=== PATIENT | female | born 1990 | race African-American/Black ===

== ENCOUNTER 2017-10-05 18:14 | Emergency (ER) | payer OTHER ==
[~2017-10-05] VITALS: Ht 162.6 cm; Wt 95.5 kg
[2017-10-05 19:54] LABS: CONTROL LINE HCG INT CTR LINE PRESENT
[2017-10-05] MEDS ORDERED: PRENTAB16 PO (20:08)
[2017-10-05 20:16] VITALS: BP 137/80
== END 2017-10-05 20:17 | disposition home or self-care (01) ==
LOC: M ED 18:14
DX: R79.89 Other specified abnormal findings of blood chemistry (principal); Z3A.00 Weeks of gestation of pregnancy not specified

== ENCOUNTER 2017-10-15 12:37 | Emergency (ER) | payer OTHER ==
[~2017-10-15] VITALS: Ht 162.6 cm; Wt 93.6 kg
[~2017-10-15 12:37] MED LIST: PRENTAB16 PO
[2017-10-15 14:25] LABS: MEAN CORPUSCULAR HEMOGLOBIN 28.1 pg (27.0-33.0); MEAN CORPUSCULAR VOLUME 82.4 fl (80.0-96.0); PLATELET COUNT, AUTOMATED 246 10^3/uL (150-450); RED CELL DISTRIBUTION WIDTH 13.6 % (11.5-14.5); WHITE BLOOD COUNT 4.8 10^3/uL (4.0-10.0)
[2017-10-15 14:33] LABS: MUCUS, URINE RFX SMALL (NEGATIVE); SPECIFIC GRAVITY UR AUTO RFX 1.024 (1.002-1.035); SQUAM EPITHELIAL CELL UR AURFX 2 /HPF (0-6)
--- NOTE | 2017-10-15 15:22 | REP ---
First trimester emergency obstetric sonography: History: Cramping and vaginal spotting. Findings: Transabdominal scanning demonstrates a viable single intrauterine gestation in a free-floating lie. heart rate is recorded at 149 beats per minute. The embryonic pole measures 15 mm in crown-rump length. This corresponds with a gestational age estimate of 7 weeks and 6 days. There is a 2.9 x 2.9 x 2.2 cm small subchorionic hemorrhage identified superior to the gestational sac. There is a 2.3 cm right ovarian cyst consistent with a corpus luteum. There is a 2.9 cm posterior myometrial fibroid. Impression: 1. Viable single intrauterine gestation at 7 weeks 6 days by crown-rump length. MARIA ELENA by sonography May 28, 2018. 2. 2.9 cm posterior uterine fibroid. 3. 2.9 cm subchorionic hemorrhage adjacent to the gestational sac superiorly. Signed by Pa Mcrae MD 10/15/2017 04:15 P
[2017-10-15 15:57] VITALS: BP 145/6
== END 2017-10-15 15:59 | disposition home or self-care (01) ==
LOC: M ED 12:37
DX: O20.8 Other hemorrhage in early pregnancy (principal); Z3A.01 Less than 8 weeks gestation of pregnancy; O99.511 Diseases of the respiratory system complicating pregnancy, first trimester; J45.909 Unspecified asthma, uncomplicated; O34.11 Maternal care for benign tumor of corpus uteri, first trimester; D25.9 Leiomyoma of uterus, unspecified

== ENCOUNTER 2018-01-14 19:54 | Emergency (ER) | payer OTHER ==
[2018-01-14] MEDS: PERCOCET 5MG/325MG TAB PO (21:45)
== END 2018-01-15 00:15 | disposition home or self-care (01) ==
LOC: M ED 01-15 00:15
DX: O9A.212 Injury, poisoning and certain other consequences of external causes complicating pregnancy, second trimester (principal); S50.02XA Contusion of left elbow, initial encounter; S70.02XA Contusion of left hip, initial encounter; W00.0XXA Fall on same level due to ice and snow, initial encounter; Y92.018 Other place in single-family (private) house as the place of occurrence of the external cause; R10.2 Pelvic and perineal pain; Z3A.20 20 weeks gestation of pregnancy; O99.512 Diseases of the respiratory system complicating pregnancy, second trimester; J45.909 Unspecified asthma, uncomplicated; Z87.891 Personal history of nicotine dependence
CPT/HCPCS: 73080

== ENCOUNTER 2018-02-18 21:42 | Outpatient (CLI) | payer OTHER ==
[2018-02-18 22:46] LABS: APPEARANCE, URINE CLEAR (CLEAR); BACTERIA, URINE AUTO 1+ (NEGATIVE); BILIRUBIN, URINE AUTO NEGATIVE (NEGATIVE); BLOOD, URINE BLOOD NEGATIVE (NEGATIVE); CALCIUM OXALATE CRYSTALS SMALL; COLOR, URINE YELLOW (YELLOW); GLUCOSE, URINE (UA) AUTO NEGATIVE (NEGATIVE); KETONE, URINE AUTO NEGATIVE (NEGATIVE); LEUKOCYTE ESTERASE, URINE AUTO NEGATIVE (NEGATIVE); MUCUS, URINE SMALL (NEGATIVE); NITRITE, URINE AUTO NEGATIVE (NEGATIVE); PROTEIN, URINE AUTO NEGATIVE (NEGATIVE); RBC, URINE AUTO 1 /HPF (0-3); SPECIFIC GRAVITY URINE AUTO 1.029 (1.002-1.035); SQUAMOUS EPITHELIAL CELL UR AU 6 /HPF (0-6); WBC, URINE AUTO 2 /HPF (0-3)
== END 2018-02-18 23:35 | disposition home or self-care (01) ==
LOC: M LDO 21:42
DX: O26.892 Other specified pregnancy related conditions, second trimester (principal); Z3A.25 25 weeks gestation of pregnancy; M54.32 Sciatica, left side
CPT/HCPCS: 59025

== ENCOUNTER 2018-03-27 10:10 | Emergency (ER) | payer OTHER ==
[2018-03-27 11:20] LABS: HEMATOCRIT 33.2 % (36.0-47.0); HEMOGLOBIN 11.3 g/dl (12.0-15.5); MEAN CORPUSCULAR HEMOGLOBIN 28.3 pg (27.0-33.0); MEAN CORPUSCULAR VOLUME 83.2 fl (80.0-96.0); PLATELET COUNT, AUTOMATED 203 10^3/uL (150-450); RED BLOOD COUNT 3.99 10^6/uL (4.00-5.40); RED CELL DISTRIBUTION WIDTH 13.5 % (11.5-14.5)
== END 2018-03-27 14:26 | disposition home or self-care (01) ==
LOC: M ED 10:10
DX: S39.91XA Unspecified injury of abdomen, initial encounter (principal); Z3A.27 27 weeks gestation of pregnancy; Y04.8XXA Assault by other bodily force, initial encounter; Y93.9 Activity, unspecified; Y99.9 Unspecified external cause status; Z79.899 Other long term (current) drug therapy; Z91.013 Allergy to seafood
CPT/HCPCS: 76815

== ENCOUNTER 2018-03-27 14:34 | Outpatient (CLI) | payer OTHER ==
[2018-03-28 11:26] LABS: FIBRINOGEN 447 MG/DL (221-452)
[2018-03-28 12:07] LABS: HEMATOCRIT 32.1 % (36.0-47.0); HEMOGLOBIN 11.2 g/dl (12.0-15.5); MEAN CORPUSCULAR HEMOGLOBIN 28.9 pg (27.0-33.0); MEAN CORPUSCULAR HGB CONC 34.9 g/dl (32.0-36.5); MEAN CORPUSCULAR VOLUME 82.9 fl (80.0-96.0); PLATELET COUNT, AUTOMATED 191 10^3/uL (150-450); RED BLOOD COUNT 3.87 10^6/uL (4.00-5.40); RED CELL DISTRIBUTION WIDTH 13.8 % (11.5-14.5); WHITE BLOOD COUNT 9.1 10^3/uL (4.0-10.0)
== END 2018-03-27 18:50 | disposition home or self-care (01) ==
LOC: M LDO 14:34
DX: O9A.313 Physical abuse complicating pregnancy, third trimester (principal); Y07.01 Husband, perpetrator of maltreatment and neglect; Z3A.31 31 weeks gestation of pregnancy; Y99.8 Other external cause status
CPT/HCPCS: G0463

== ENCOUNTER 2018-05-14 18:09 | Inpatient (IN) | payer OTHER ==
[2018-05-14] MEDS ORDERED: BUTORPHANOL 2 MG/ML INJ (J0595) IV (23:15)
[2018-05-15] MEDS: AMPICILLIN SOD 2 GM in APPROPRIATE DILUENT 20 ML IV (00:18)
[2018-05-15 00:23] LABS: HEMATOCRIT 35.3 % (36.0-47.0); HEMOGLOBIN 12.3 g/dl (12.0-15.5); MEAN CORPUSCULAR HEMOGLOBIN 28.1 pg (27.0-33.0); MEAN CORPUSCULAR HGB CONC 34.8 g/dl (32.0-36.5); MEAN CORPUSCULAR VOLUME 80.8 fl (80.0-96.0); PLATELET COUNT, AUTOMATED 210 10^3/uL (150-450); RED BLOOD COUNT 4.37 10^6/uL (4.00-5.40); WHITE BLOOD COUNT 10.1 10^3/uL (4.0-10.0)
[2018-05-15] MEDS: LR 1,000 ML IV (00:25)
[2018-05-15] MEDS: LACTATED RINGER'S 1000 ML IV (00:25)
[2018-05-15] MEDS: OXYTOCIN DRIP 30 UNITS in APPROPRIATE DILUENT 1 EA IV ×2 (00:39→05:38)
[2018-05-15] MEDS ORDERED: AMPICILLIN SOD 1 GM in APPROPRIATE DILUENT 10 ML IV (03:00)
[2018-05-15] MEDS ORDERED: FENTANYL 2MCG/ML ROPIVACAINE 0.2% IN 0.9% NACL 200ML IVBAG As Ordered (03:56)
[2018-05-15] MEDS ORDERED: RHOGAM 300 MCG (1500 IU) INJ (J2790) IM (05:45)
[2018-05-15] MEDS ORDERED: DIBUCAINE 1% OINTMENT 30GM TOP (05:45)
[2018-05-15] MEDS ORDERED: MEASLES,MUMPS,RUBELLA VACCINE INJ (MMR-II) (90707) SC (05:45)
[2018-05-15] MEDS ORDERED: ePHEDrine SULFATE 25 MG/5 ML(5MG/ML) SYRINGE IV (06:45)
[2018-05-15] MEDS ORDERED: REFRIGERATOR IV KEYS XX (06:45)
[2018-05-15] MEDS: FENTANYL/ROPIVACAINE/NACL BAG 200 ML EPIDURAL ×2 (06:45→16:25)
[2018-05-15] MEDS ORDERED: NALOXONE INJ 0.4 MG/1 ML VIAL (J2310) IV (06:45)
[2018-05-15] MEDS ORDERED: diphenhydrAMINE INJ 50MG/ML VIAL (J1200) IV (06:45)
[2018-05-15] MEDS ORDERED: EPIDURAL/PCA KEYS XX (06:45)
[2018-05-15] MEDS ORDERED: EPIDURAL COMMENT XX (06:45)
[2018-05-15] MEDS ORDERED: LACTATED RINGER'S 1000 ML IV (06:45)
[2018-05-15] MEDS ORDERED: ONDANSETRON 4MG/2ML VIAL (J2405) IV (06:45)
[2018-05-15] MEDS: PRENATAL VITAMINS CHEWABLE TABLET PO (10:00)
[2018-05-15] MEDS: IBUPROFEN 800 MG TAB PO ×2 (11:49→19:37)
[2018-05-15] MEDS: ACETAMINOPHEN 500 MG TAB PO (15:39)
[2018-05-15] MEDS: DOCUSATE SODIUM 100 MG CAP PO (19:37)
[2018-05-16] MEDS: ACETAMINOPHEN 500 MG TAB PO ×3 (01:06→19:35)
[2018-05-16] MEDS: IBUPROFEN 800 MG TAB PO ×2 (04:54→14:30)
[2018-05-16] MEDS: PRENATAL VITAMINS CHEWABLE TABLET PO (08:10)
[2018-05-16] MEDS: DOCUSATE SODIUM 100 MG CAP PO (19:34)
[2018-05-17] MEDS: IBUPROFEN 800 MG TAB PO (02:59)
[2018-05-17] MEDS: PRENATAL VITAMINS CHEWABLE TABLET PO (08:46)
== END 2018-05-17 09:45 | disposition home or self-care (01) | DRG 775 ==
LOC: M LDO 18:09 → M OBS 05-15 08:48 → M LDI 23:08
PROVIDERS: Obstetrics & Gynecology
PROC: 10E0XZZ Delivery of Products of Conception, External Approach (ICD-10-PCS; principal; 2018-05-15)
PROC: 0UQMXZZ Repair Vulva, External Approach (ICD-10-PCS; 2018-05-15)
DX: O42.02 Full-term premature rupture of membranes, onset of labor within 24 hours of rupture (principal); O99.214 Obesity complicating childbirth; Z3A.38 38 weeks gestation of pregnancy; E66.9 Obesity, unspecified; Z68.34 Body mass index [BMI] 34.0-34.9, adult; O99.52 Diseases of the respiratory system complicating childbirth; J45.20 Mild intermittent asthma, uncomplicated; O34.13 Maternal care for benign tumor of corpus uteri, third trimester; O99.824 Streptococcus B carrier state complicating childbirth; O71.82 Other specified trauma to perineum and vulva; Z37.0 Single live birth

== ENCOUNTER 2019-06-26 15:24 | Inpatient (IN) | payer OTHER ==
[~2019-06-26] VITALS: Ht 162.6 cm; Wt 105.7 kg
[~2019-06-26 15:24] MED LIST changes: +IBUP-1114 PO
[2019-06-26 15:40] VITALS: BP 134/75
[2019-06-26] MEDS ORDERED: LR 1,000 ML IV SCH (18:05)
[2019-06-26] MEDS ORDERED: LACTATED RINGER'S 1000 ML IV STA (18:05)
[2019-06-26] MEDS ORDERED: miSOPROStol 50 MCG 1/2 TAB (S0191) SL ONE (18:15)
[2019-06-26 18:59] LABS: HEMATOCRIT 36.3 % (36.0-47.0); HEMOGLOBIN 12.4 g/dl (12.0-15.5); MEAN CORPUSCULAR HEMOGLOBIN 28.2 pg (27.0-33.0); MEAN CORPUSCULAR HGB CONC 34.2 g/dl (32.0-36.5); MEAN CORPUSCULAR VOLUME 82.7 fl (80.0-96.0); PLATELET COUNT, AUTOMATED 210 10^3/uL (150-450); RED BLOOD COUNT 4.39 10^6/uL (4.00-5.40); WHITE BLOOD COUNT 8.7 10^3/uL (4.0-10.0)
--- NOTE | 2019-06-26 19:00 | HPEPDOC ---
Obstetrical History & Physical General Date of Admission Jun 26, 2019 at 17:39 History of Present Illness 29yo at 38+6wks presented to LND triage with c/o SROM at 0600 this AM. P t states she felt a gush, put on a pad and no further leaking noticed. Pt reports +FM and some irregular contractions, denies LOF/VB. complicated by closely spaced ( 04/2018), Obesity, Asthma, and depression. Chief Complaint: LOF, term Information Provided By: Patient Care Care: Limited Care Number of Visits: 5 Dating Final EDC: Jul 04, 2019 Final EDC by: 2nd trimester (US) Antepartum Course Diagnos(e)s Obesity Asthma, mild intermittent Close interval Height (inches): 64 Pre- weight (lbs.): 220 Admission Weight (lbs.): 232 Past Medical History Past Obstetrical History : Past Obstetrical History: Multigravida Date of Delivery: May 15, 2018 Gestation: 38 Type of Delivery: Spontaneous Vaginal Del. 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 Past Medical History Medical History Obesity Asthma Family History Significant Family History: No pertinent family hx Social History Marital Status: Family situation: Spouse/partner home Psychosocial History: Depression * Smoker: non-smoker Alcohol: Denies Drugs: denies Abuse Violence Screening Have you been hit/kicked/slapp: No Have you been sexually assault: No Imunizations Tdap status: current Allergies Coded Allergies: SEAFOOD (Verified Allergy, Severe, HIVES AND THROAT SWELLING, 05/14/18) Medications Scheduled 21/Iron Fu/Folic Acid ( Complete Caplet) 1 Tab Tab, 1 TAB PO DAILY Physical Examination Physical Examination GENERAL: Alert and oriented times three. ABDOMEN: Gravid and non-tender to touch. FETUS: Is vertex (VTX) by sterile vaginal examination (SVE) HEART RATE: Regular rate LUNGS: Clear to auscultation (CTA). EXTREMITIES: bilateral pedal edema Other physical findings Negative Ferning, nitrazine or pooling. Membranes intact. Vital Signs/I&O Vital Signs Date Time Temp Pulse Resp B/P (MAP) Pulse Ox O2 Delivery O2 Flow Rate FiO2 06/26/19 15:40 97.8 100 18 134/75 (94) Laboratory Data [facility] Laboratory Tests 2 06/26/19 18:04: Serology Scanned Report Hepatitis B Testing 06/26/19 18:19: CBC/BMP Pertinent Laboratoy Data Blood Type: A+ RBC Antibody Screen: Negative HIV: Negative Hepatitis B: Negative Rapid Plasma Reagin: Nonreactive Rubella: Immune Varicella: Immune Chlamydia/Gonorrhea: Negative Group B Streptococcus: Negative Glucose Tolerance Test: 131 Anatomy Ultrasound Ultrasound Date: March 19, 2019 Placenta Location: Anterior Normal Anatomy: Yes Placenta Previa: No Steroid Therapy Steroid Therapy: No Vaginal Examination Dilation: 1cm Effacement: 40% Station: -2 Cervical Consistency: Soft Cervical Position: Posterior Presentation: Cephalic presentation Assessment Heart Rate (FHR): 130 Variability: Moderate Accelerations: None Decelerations: Variable Tocometer Contractions: Yes Frequency: irregular Strength: palpated as mild Assessment/Plan Assessment Ms. Narayan is a 29yo at 38+6wks. Initially there was a Category II tracing in triage d/t variable decelerations, Category II. After exam, tracing was Category I, but not reactive. D/t initial variables and category II tracing, pt admitted for IOL. Cervix is favorable and contractions present, most likely in early labor. GBS is Negative; +Hx of asthma. Plan Admit to LND and consent for IOL Counseled on Cytotec and Pitocin R/B/A IV Start, admission labs drawn Start IOL with buccal cytotec 50mcg IV and PO hydration Regular Diet Intermittent monitoring only with cytotec after meets criteria Epidural when desires Consult OB if indicated c/s as appropriate Anticipate Anticipate [normal spontaneous delivery ()]. C-S as appropriate. DEWAYNE CARRERO CNM Jun 26, 2019 19:00
[2019-06-26] MEDS ORDERED: FENTANYL 2MCG/ML ROPIVACAINE 0.2% IN 0.9% NACL 100ML IVBAG As Ordered ONE (21:13)
[2019-06-26] MEDS ORDERED: OXYTOCIN 30 UNITS IN 0.9% NaCl 500ML IV BAG (J2590) As Ordered ONE (21:24)
[2019-06-26] MEDS: OXYTOCIN DRIP 30 UNITS in APPROPRIATE DILUENT 1 EA IV SCH (21:58)
[2019-06-26 22:00] LABS: CORD GAS ABE V -4.4; CORD GAS HCO3 V 19.4 MEQ/L; CORD GAS O2 SAT V 79.5 %; CORD GAS PCO2 V 32.8 mmHg; CORD GAS PH V 7.39 UNITS; CORD GAS PO2 V 36.1 mmHg; CORD GAS SBC V 20.5 MEQ/L; CORD GAS TCO2 V 20.4 MEQ/L
[2019-06-26] MEDS ORDERED: MOM 30ML SUSPENSION UDC PO PRN (22:00)
[2019-06-26] MEDS ORDERED: IBUPROFEN 600 MG TAB PO PRN (22:00)
[2019-06-26] MEDS ORDERED: ANUSOL HC CREAM 30GM TOP PRN (22:00)
[2019-06-26] MEDS ORDERED: MEASLES,MUMPS,RUBELLA VACCINE INJ (MMR-II) (90707) SC SCH (22:00)
[2019-06-26] MEDS ORDERED: DIBUCAINE 1% OINTMENT 30GM TOP PRN (22:00)
[2019-06-26] MEDS ORDERED: DOCUSATE SODIUM 100 MG CAP PO PRN (22:00)
[2019-06-26] MEDS ORDERED: ACETAMINOPHEN TAB 650MG DOSE (2X325MG) PO PRN (22:00)
[2019-06-26] MEDS ORDERED: METHYLERGONOVINE MALEATE 0.2 MG TAB PO PRN (22:00)
[2019-06-26] MEDS ORDERED: RHOGAM 300 MCG (1500 IU) INJ (J2790) IM SCH (22:00)
[2019-06-26] MEDS ORDERED: OXYTOCIN INJ 10 UNITS/ML VIAL (J2590) IV ONE (22:00)
[2019-06-26 22:03] LABS: CORD GAS ABE A -3.9; CORD GAS HCO3 A 22.8 MEQ/L; CORD GAS O2 SAT A 50.6 %; CORD GAS PCO2 A 47.1 mmHg; CORD GAS PH A 7.302 UNITS; CORD GAS PO2 A 23.3 mmHg; CORD GAS SBC A 20.1 MEQ/L; CORD GAS TCO2 A 24.2 MEQ/L
[2019-06-27] MEDS: OXYTOCIN DRIP 30 UNITS in APPROPRIATE DILUENT 1 EA IV SCH ×2 (01:58→05:41)
[2019-06-27 06:00] VITALS: BP 137/84
[2019-06-27 06:33] LABS: HEMATOCRIT 34.1 % (36.0-47.0); HEMOGLOBIN 11.7 g/dl (12.0-15.5); MEAN CORPUSCULAR HEMOGLOBIN 28.7 pg (27.0-33.0); MEAN CORPUSCULAR HGB CONC 34.3 g/dl (32.0-36.5); MEAN CORPUSCULAR VOLUME 83.6 fl (80.0-96.0); PLATELET COUNT, AUTOMATED 181 10^3/uL (150-450); RED BLOOD COUNT 4.08 10^6/uL (4.00-5.40); WHITE BLOOD COUNT 13.1 10^3/uL (4.0-10.0)
[2019-06-27] MEDS: PRENATAL VITAMINS CHEWABLE TABLET PO SCH (07:41)
[2019-06-27] MEDS: IBUPROFEN 800 MG TAB PO PRN ×2 (07:41→17:04)
--- NOTE | 2019-06-27 11:48 | IPNPDOC ---
Text Note Date of Service The patient was seen on 06/27/19. NOTE Pt seen earlier on rounds by Dr. Calderon. I visited patient on social rounds after assuming care at 0700h from Dr. Calderon. Pt resting comfortably s/p at 39weeks. 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 Pt voiced understanding. Continue routine care. Provider will round on patient tommorrow in AM available as needed sooner. VS,Fishbone, I+O VS, Fishbone, I+O Laboratory Tests 06/26/19 18:19 Red Blood Count 4.39, Mean Corpuscular Volume 82.7, Mean Corpuscular Hemoglobin 28.2, Mean Corpuscular Hemoglobin Concent 34.2, Red Cell Distribution Width 14.7 H 06/27/19 06:19 Red Blood Count 4.08, Mean Corpuscular Volume 83.6, Mean Corpuscular Hemoglobin 28.7, Mean Corpuscular Hemoglobin Concent 34.3, Red Cell Distribution Width 14.6 H Vital Signs Date Time Temp Pulse Resp B/P (MAP) Pulse Ox O2 Delivery O2 Flow Rate FiO2 06/27/19 06:00 98.2 71 18 137/84 (101) I&O- Last 24 Hours up to 6 AM 06/27/19 06:00 Output Total 300 ml Balance -300 ml EDUARDO HENDRIX MD Jun 27, 2019 11:48
--- NOTE | 2019-06-27 16:15 | DN ---
DATE: 06/26/2019 DELIVERY NOTE: This lady is 31-year-old 2, para 1 at 38 and 6, came in because of query of spontaneous rupture of membranes which was negative. She had a nonstress test which showed she had a category II strip and she was therefore induced with 25 mg of Cytotec buccally. She eventually got into active labor. She precipitous rapidly, was 5 cm, bulging membranes, spontaneous rupture of membranes, clear liquor, had a category one strip when in active labor and she precipitously delivered a live female weighing 7 pounds 1 ounce, 3190 grams, scores of nine and nine at 1 and 5 minutes respectively. Placenta delivered spontaneously thereafter. Three-vessel cord. Membranes and tissues intact. The uterus contracted well down under Pitocin. Examination of the perineum was intact, anterior, posterior and lateral disla were intact. The arterial blood gases 7.30, base excess -3.9, venous pH 7.39, base excess -4.4. In summary, we have a early term gestation, delivered a live precipitously female . Mother and baby tolerating procedure well.
[2019-06-27 18:00] VITALS: BP 123/58
[2019-06-27] MEDS: ACETAMINOPHEN 500 MG TAB PO PRN (20:59)
[2019-06-28] MEDS: IBUPROFEN 800 MG TAB PO PRN ×2 (02:08→13:06)
[2019-06-28] MEDS: ACETAMINOPHEN 500 MG TAB PO PRN ×2 (03:20→08:24)
[2019-06-28 06:00] VITALS: BP 106/62
[2019-06-28] MEDS ORDERED: IBUP80TA PO (07:32)
[2019-06-28] MEDS ORDERED: DIBU10OI TOP (07:32)
[2019-06-28] MEDS ORDERED: COLA100C5 PO (07:32)
[2019-06-28] MEDS ORDERED: ACET-683 PO (07:32)
[2019-06-28] MEDS: PRENATAL VITAMINS CHEWABLE TABLET PO SCH (08:16)
--- NOTE | 2019-06-28 16:58 | DSES ---
DATE OF ADMISSION: 06/26/2019 DATE OF DISCHARGE: 06/28/2019 This lady is a 29-year-old 2, now para 2, who was admitted for induction of labor for a category 2 strip. She had a spontaneous precipitous delivery, intact perineum, a live- female, 7 pounds 1 ounce, 3190 grams, scores of 9 and 9 at one and five minutes, respectively. Arterial pH 7.30, base excess -3.9, venous pH of 7.39, base excess of -4.4. Admitting hemoglobin 12.4, hematocrit 36.3, and platelets 210. Discharge hemoglobin 11.7, hematocrit 34.1, and platelets were 181. The rest examination was unremarkable. She is normocephalic, atraumatic. Neck: Full range of motion. Pupils equal and reactive to light. Distal pulses are symmetric. No evidence of deep vein thrombosis (DVT), pulmonary embolism (PE), or superficial phlebitis. Chest is clear bilaterally to bases. No wheezes or rhonchi. No costovertebral angle (CVA) tenderness. Abdomen soft. Uterus 2 below. Lochia is moderate. Four-quadrant bowel sounds are noted. Perineum is intact. No urgency, frequency. No nausea, vomiting, diarrhea, or constipation. No rashes, lesions, or pruritus. No arthralgia, myalgia. No complaint joint pain. No shortness of breath. The patient is vacillating between using Depo-Provera, which she used as a teenager, although she had some bleeding, and Nexplanon. We will make the decision at her 6-week checkup. Medications were dispensed to [facility]. All questions were answered. A 20-minute discussion.
== END 2019-06-28 13:00 | disposition home or self-care (01) | DRG 807 ==
LOC: M LDO 15:24 → M LDI 17:39 → M OBS 23:50
PROVIDERS: ADMIT Registered Nurse Maternal Newborn; ATTEND Obstetrics & Gynecology
PROC: 10E0XZZ Delivery of Products of Conception, External Approach (ICD-10-PCS; principal; 2019-06-26)
PROC: 3E0P7GC Introduction of Other Therapeutic Substance into Female Reproductive, Via Natural or Artificial Opening (ICD-10-PCS; 2019-06-26)
DX: O76 Abnormality in fetal heart rate and rhythm complicating labor and delivery (principal); Z37.0 Single live birth; Z3A.38 38 weeks gestation of pregnancy; O99.214 Obesity complicating childbirth; E66.9 Obesity, unspecified; O62.3 Precipitate labor